=== PATIENT | male | born 1935 | race African-American/Black ===

== ENCOUNTER 2019-02-20 09:34 | Outpatient (CLI) | payer MEDICARE ==
[2019-02-20 10:06] LABS: Blood Urea Nitrogen 18 mg/dL (9-20)
--- NOTE | 2019-02-20 15:44 | Cat Scan Report ---
CT CHEST WITH CONTRAST INDICATION: Pulmonary nodule. COMPARISON: 10/18/2018 chest CTA. FINDINGS: Chest CT performed following intravenous administration of 100 cc of Omnipaque 300. Stable heart size and great vessels. No effusions or size significant adenopathy. Patent central airway. Stable thyroid, including approximately 2.5 cm heterogeneous substernal nodule/goiter as on axial series 2, image 28, amongst others. Chronic changes within the lungs again noted, including biapical scarring, tiny fine interstitial nodularity and slight bronchiectasis, some noted extending into the upper lobes as also in the right middle lobe and the lingula as on axial images 36 and 80, amongst others. Few small, subcentimeter calcified granulomas again noted as in the right upper lobe posteriorly, axial series 3, image 66, peripherally in the right middle lobe, axial image 175 and posteriorly at the extreme right lung base as on axial image 216, amongst others. Another 7-8 mm right middle lobe nodule anteriorly described previously also again seen as on axial image 158, series 3 with a tiny eccentric calcification. A 6 mm calcified lingular nodule is also stable, axial image 187. Nonspecific distal esophageal wall prominence/thickening, not excluded for gastroesophageal reflux and/or hiatal hernia, amongst others. Approximately 1.3 cm partly exophytic left renal cortical cyst and partially imaged bilateral renal pelves prominence/possible extrarenal pelves again noted. Multilevel spinal degenerative changes, greatest lower thoracic-imaged upper lumbar with disc degeneration/narrowing, vacuum disc phenomenon and spurring. CONCLUSION: 1. No acute significant chest process or significant interval change in this patient with pulmonary nodular densities again noted, predominantly calcified and likely chronic/old healed granulomatous disease. Direct comparison with more remote chest CT imaging would be very helpful to reassure stability and avoid further nodule workup, in the absence of which, depending on patient risk categorization, a followup in approximately 3-6 months may be obtained towards a 2-year surveillance. 2. Various other findings as distal esophageal thickening, stable substernal goiter, left renal cyst and spinal spondylosis, amongst others, as above. Thank you for the opportunity to participate in this patient's care.
== END 2019-02-20 09:35 | disposition home or self-care (01) ==
LOC: CT 09:34
PROVIDERS: ATTEND Specialist
DX: R91.1 Solitary pulmonary nodule (principal); N28.1 Cyst of kidney, acquired; E04.9 Nontoxic goiter, unspecified; M47.819 Spondylosis without myelopathy or radiculopathy, site unspecified; E78.00 Pure hypercholesterolemia, unspecified; I10 Essential (primary) hypertension
CPT/HCPCS: 36415; 71260; 82565; 84520; Q9967

== ENCOUNTER 2019-12-29 21:22 | Emergency (ER) | payer MEDICARE ==
[2019-12-29 22:58] LABS: Bilirubin,Urine Negative (Negative); Color,Urine Red (Yellow); Mucus,Urine 3+ /HPF; RBC,Urine > 182.0 /HPF (0.0-6.0)
[2019-12-29 22:59] LABS: Blood,Urine Large (Negative); Protein,Urine <15 mg/dL mg/dL (Negative); Urobilinogen,Urine < 2.0 mg/dL (<2.0)
--- NOTE | 2019-12-29 23:28 | Emergency Department Report ---
ED Male HPI - General Chief complaint: Urogenital-Male Stated complaint: BLOOD IN URINE Time Seen by Provider: 12/29/19 23:06 Source: patient, family, RN notes reviewed Mode of arrival: Ambulatory Limitations: Language Barrier - History of Present Illness Initial comments: Manager Roofing number: [id number] Local primary care doctor: Dr. Chau Mcdonough, but has not seen him in a few years Previously has seen 1 of our local urologist, Dr. Citlalli Ackerman The patient is an 84-year-old gentleman. He recently moved here from the [facility]. Has a past medical history includes hypertension, hyperlipidemia, BPH, prostate cancer. He was recently treated at [facility] late November for urinary retention. A Mahan catheter was placed, and he was started empirically on levofloxacin. He reports compliance with his antibiotics. His Mahan catheter was discontinued in [place] 2 to 3 days ago. Today, he presents with bloody urine. He has mild dysuria. He denies additional complaints. He denies hematemesis and bright red blood per rectum. He denies testicular pain. Bloody urination is constant for the past day. It does not radiate anywhere, and does not appear to have exacerbating or relieving factors. MD Complaint: dysuria, other -: days(s) Quality: other Improves with: other Worsens with: other - Related Data Home Medications Medication Instructions Recorded Confirmed Last Taken Alendronate Sodium [Fosamax] 70 mg PO QWEEK 02/17/15 10/19/18 02/16/15 Dutasteride [Avodart] 0.5 mg PO DAILY 02/17/15 10/19/18 02/16/15 Tamsulosin [Flomax] 0.4 mg PO QDAY 02/17/15 10/19/18 02/16/15 Telmisartan 80 mg PO DAILY 02/17/15 10/19/18 1 Day Ago ~02/16/15 1 hydroCHLOROthiazide [HCTZ] 25 mg PO QDAY 02/17/15 10/19/18 1 Day Ago ~02/16/15 Previous Rx's Medication Instructions Recorded Last Taken Type Nitrofurantoin Sutter/M-Cryst 100 mg PO Q12HR #14 capsule 12/29/19 Unknown Rx [Macrobid CAP] Allergies Allergy/AdvReac Type Severity Reaction Status Date / Time No Known Allergies Allergy Verified 12/29/19 21:28 ED Review of Systems ROS: Stated complaint: BLOOD IN URINE Other details as noted in HPI Constitutional: denies: fever Respiratory: denies: cough Cardiovascular: denies: chest pain Gastrointestinal: denies: abdominal pain, hematemesis, melena, hematochezia Genitourinary: dysuria, frequency, hematuria. denies: testicular pain Musculoskeletal: denies: back pain Skin: as per HPI Neurological: as per HPI Psychiatric: as per HPI Hematological/Lymphatic: denies: easy bleeding ED Past Medical Hx - Past Medical History Hx Hypertension: Yes Additional medical history: prostate cancer, hyperlipidemia - Social History Smoking Status: Never Smoker - Medications Home Medications: Home Medications Medication Instructions Recorded Confirmed Last Taken Type Alendronate Sodium [Fosamax] 70 mg PO QWEEK 02/17/15 10/19/18 02/16/15 History Dutasteride [Avodart] 0.5 mg PO DAILY 02/17/15 10/19/18 02/16/15 History Tamsulosin [Flomax] 0.4 mg PO QDAY 02/17/15 10/19/18 02/16/15 History Telmisartan 80 mg PO DAILY 02/17/15 10/19/18 1 Day Ago History ~02/16/15 1 hydroCHLOROthiazide [HCTZ] 25 mg PO QDAY 02/17/15 10/19/18 1 Day Ago History ~02/16/15 Nitrofurantoin Sutter/M-Cryst 100 mg PO Q12HR #14 capsule 12/29/19 Unknown Rx [Macrobid CAP] ED Physical Exam - General Limitations: Language Barrier General appearance: alert, in no apparent distress - Head Head exam: Present: atraumatic, normocephalic - Eye Eye exam: Present: normal appearance, EOMI. Absent: nystagmus - ENT ENT exam: Present: normal exam, normal orophraynx, mucous membranes moist - Neck Neck exam: Present: normal inspection, full ROM. Absent: tenderness, meningismus - Respiratory Respiratory exam: Present: normal lung sounds bilaterally. Absent: respiratory distress - Cardiovascular Cardiovascular Exam: Present: regular rate, normal rhythm, normal heart sounds. Absent: bradycardia, tachycardia, irregular rhythm, systolic murmur, diastolic murmur, rubs, gallop - GI/Abdominal GI/Abdominal exam: Present: soft. Absent: distended, tenderness, guarding, rebound, rigid, pulsatile mass - Rectal Rectal exam: Present: deferred - exam: Present: normal inspection, other (There is normal testicular lie. There is normal cremasteric reflex. There is no testicular tenderness. There is no testicular swelling). Absent: testicular tenderness External exam: Present: normal external exam (liquefaction supervisor F Humphries in the room during the exam), other (There is an easily retractable foreskin. No obvious blood is noted at the meatus.) - Extremities Exam Extremities exam: Present: normal inspection, full ROM, other (2+ pulses noted in the bilateral upper and lower extremities. There is no palpable cord. negative Homans sign. Muscular compartments are soft. The pelvis is stable.). Absent: calf tenderness - Back Exam Back exam: Present: normal inspection, full ROM. Absent: tenderness, CVA tenderness (R), CVA tenderness (L), paraspinal tenderness, vertebral tenderness - Neurological Exam Neurological exam: Present: alert, other (There is no facial droop. The tongue is midline. Extraocular movements are intact bilaterally. There is 5 out of 5 strength in bilateral upper and lower extremities. Sensation is intact to light touch bilateral upper and lower extremities. ). Absent: motor sensory deficit - Psychiatric Psychiatric exam: Present: anxious - Skin Skin exam: Present: warm, dry, intact, normal color. Absent: rash ED Course Vital Signs 12/29/19 21:30 Temperature 97.9 F Pulse Rate 78 Respiratory 18 Rate Blood Pressure 117/63 O2 Sat by Pulse 95 Oximetry - Reevaluation(s) Reevaluation #1: 12/29/19 23:57 Differential diagnosis, including not limited to: Hemorrhagic cystitis, vesicular hemorrhage, vesicular contraction/spasm, vesicular malignancy, prostatic malignancy Assessment and plan: 84-year-old gentleman with recent history of Mahan catheter placement, and subsequent removal, now with painful bloody urination. He is afebrile with reassuring vital signs. His physical examination is fairly unremarkable. Urinalysis is reviewed and appreciated. CBC, CMP, PT/INR ordered, Mahan catheter ordered for placement with irrigation, reassessed after irrigation has been completed. Anticipate need for discharge for close outpatient follow-up, we will likely initiate antibiotic therapy, explained the importance of needing to closely follow-up with outpatient primary care or urology for further outpatient evaluation to exclude cancer, tumor, malignancy. This was conveyed to the patient using a Algerian loss prevention associate, and the patient verbalized understanding. Reevaluation #2: 12/30/19 01:10 Patient resting comfortably, and in no acute distress. He is irrigated with approximately 200 cc of saline, which has cleared up his hematuria. His laboratory studies are unremarkable. Family at the bedside. They understand the need that he will need to closely follow-up with outpatient primary care and/or urology. ED Medical Decision Making - Lab Data Result diagrams: 12/30/19 00:09 12/30/19 00:09 Vital Signs 12/29/19 21:30 Temperature 97.9 F Pulse Rate 78 Respiratory 18 Rate Blood Pressure 117/63 O2 Sat by Pulse 95 Oximetry Lab Results 12/29/19 12/30/19 12/30/19 Range/Units 22:40 00:09 00:09 WBC 8.2 (4.5-11.0) K/mm3 RBC 4.05 (3.65-5.03) M/mm3 Hgb 12.4 (11.8-15.2) gm/dl Hct 36.6 (35.5-45.6) % MCV 90 (84-94) fl MCH 31 (28-32) pg MCHC 34 (32-34) % RDW 14.7 (13.2-15.2) % Plt Count 377 (140-440) K/mm3 PT 12.4 (12.2-14.9) Sec. INR 0.92 (0.87-1.13) APTT 34.3 (24.2-36.6) Sec. Sodium (137-145) mmol/L Potassium (3.6-5.0) mmol/L Chloride (98-107) mmol/L Carbon Dioxide (22-30) mmol/L Anion Gap mmol/L BUN (9-20) mg/dL Creatinine (0.8-1.5) mg/dL Estimated GFR ml/min BUN/Creatinine Ratio % Glucose (75-100) mg/dL Calcium (8.4-10.2) mg/dL Magnesium (1.7-2.3) mg/dL Total Bilirubin (0.1-1.2) mg/dL AST (5-40) units/L ALT (7-56) units/L Alkaline Phosphatase (35-129) units/L Total Creatine Kinase (55-170) units/L Total Protein (6.3-8.2) g/dL Albumin (3.9-5) g/dL Albumin/Globulin Ratio % Urine Color Red (Yellow) Urine Turbidity Turbid (Clear) Urine pH 6.0 (5.0-7.0) Ur Specific Hughson 1.025 (1.003-1.030) Urine Protein <15 mg/dl (Negative) mg/dL Urine Glucose (UA) Negative (Negative) mg/dL Urine Ketones Negative (Negative) mg/dL Urine Blood Large A (Negative) Urine Nitrite Negative (Negative) Ur Reducing Substances Not Reportable Urine Bilirubin Negative (Negative) Urine Ictotest Not Reportable Urine Urobilinogen < 2.0 (<2.0) mg/dL Ur Leukocyte Esterase Moderate (Negative) Urine WBC (Auto) 53.0 H (0.0-6.0) /HPF Urine RBC (Auto) > 182.0 (0.0-6.0) /HPF U Epithel Cells (Auto) 21.0 H (0-13.0) /HPF Urine Mucus 3+ /HPF 12/30/19 Range/Units 00:09 WBC (4.5-11.0) K/mm3 RBC (3.65-5.03) M/mm3 Hgb (11.8-15.2) gm/dl Hct (35.5-45.6) % MCV (84-94) fl MCH (28-32) pg MCHC (32-34) % RDW (13.2-15.2) % Plt Count (140-440) K/mm3 PT (12.2-14.9) Sec. INR (0.87-1.13) APTT (24.2-36.6) Sec. Sodium 141 (137-145) mmol/L Potassium 3.9 (3.6-5.0) mmol/L Chloride 102.2 (98-107) mmol/L Carbon Dioxide 26 (22-30) mmol/L Anion Gap 17 mmol/L BUN 16 (9-20) mg/dL Creatinine 0.8 (0.8-1.5) mg/dL Estimated GFR > 60 ml/min BUN/Creatinine Ratio 20 % Glucose 109 H (75-100) mg/dL Calcium 9.0 (8.4-10.2) mg/dL Magnesium 2.10 (1.7-2.3) mg/dL Total Bilirubin 0.20 (0.1-1.2) mg/dL AST 22 (5-40) units/L ALT 15 (7-56) units/L Alkaline Phosphatase 57 (35-129) units/L Total Creatine Kinase 160 (55-170) units/L Total Protein 6.7 (6.3-8.2) g/dL Albumin 4.0 (3.9-5) g/dL Albumin/Globulin Ratio 1.5 % Urine Color (Yellow) Urine Turbidity (Clear) Urine pH (5.0-7.0) Ur Specific Hughson (1.003-1.030) Urine Protein (Negative) mg/dL Urine Glucose (UA) (Negative) mg/dL Urine Ketones (Negative) mg/dL Urine Blood (Negative) Urine Nitrite (Negative) Ur Reducing Substances Urine Bilirubin (Negative) Urine Ictotest Urine Urobilinogen (<2.0) mg/dL Ur Leukocyte Esterase (Negative) Urine WBC (Auto) (0.0-6.0) /HPF Urine RBC (Auto) (0.0-6.0) /HPF U Epithel Cells (Auto) (0-13.0) /HPF Urine Mucus /HPF Critical care attestation.: If time is entered above; I have spent that time in minutes in the direct care of this critically ill patient, excluding procedure time. ED Disposition Clinical Impression: Hematuria Qualifiers: Hematuria type: unspecified type Qualified Code(s): R31.9 - Hematuria, unspecified Disposition: DC TO HOME OR SELFCARE Is pt being admited?: No Does the pt Need Aspirin: No Condition: Stable Additional Instructions: Continue current outpatient medications. Avoid consumption of Motrin, ibuprofen, Naprosyn, Aleve. Take the antibiotics as directed. Avoid consumption of alcohol. Cultures were sent today, and results will be available in the next 3 to 5 days. Please have your primary care doctor or urologist c ontact the medical records office to obtain culture results. Recommend follow- up with outpatient primary care or urologist within the next week for further evaluation of bloody urination. It is very important to follow-up to exclude cancer, tumor, malignancy. Please return to the emergency room right away with new, worsened or different symptoms, or symptoms not present on the initial emergency room evaluation. Ti?p t?c dng gilberto?c angulo?i tr hi?n t?i. Trnh nito th? Motrin, ibuprofen, Napro syn, Aleve. U?ng gilberto?c khng sinh deanne ch? d?n. Trnh nito th? r??u. Cc n?n v?n salazar ?c g?i ngy hm nay, v k?t qu? s? c andrzej 3 ??n 5 ngy t?i. Vui lng nh? bc s? ch?m sc chnh ho?c bc s? ti?t ni?u mary h? v?i v?n phng h? s? y t? ?? c k?t qu? nui c?y. ?? ngh? deanne di v?i ch?m sc chnh angulo?i tr ho?c bc s? ti?t ni?u andrzej tu?n t?i ?? ?nh gi thm v? vi?c ?i ti?u ra mu. ?i?u r?t q uan tr?ng l deanne di ?? lo?i tr? madan th?, kh?i u, c tnh. Vui lng mikayla l?i phng c?p c?u ngay l?p t?c v?i cc tri?u ch?ng m?i, x?u ?i ho?c khc bi?t, ho?c cc tri?u ch?ng khng c andrzej ?nh gi phng c?p c?u ban ??u. Prescriptions: Nitrofurantoin Sutter/M-Cryst [Macrobid CAP] 100 mg PO Q12HR #14 capsule Referrals: ROB ACKERMAN MD [Staff Physician] - 3-5 Days CHAU MCDONOUGH MD [Staff Physician] - 3-5 Days
[2019-12-29] MEDS ORDERED: SODIUM CHLORIDE 0.9% IRR 500 ML BOTTLE IR ONE (23:45)
[2019-12-30 00:50] LABS: Hematocrit 36.6 % (35.5-45.6); Hemoglobin 12.4 gm/dl (11.8-15.2); Mean Corpuscular HGB Conc 34 % (32-34); Mean Corpuscular Volume 90 fl (84-94); Platelet Count 377 K/mm3 (140-440); Red Blood Count 4.05 M/mm3 (3.65-5.03); Red Cell Distribution Width 14.7 % (13.2-15.2)
[2019-12-30 01:01] LABS: INR 0.92 (0.87-1.13)
[2019-12-30 01:02] LABS: Partial Thromboplastin Time 34.3 Sec. (24.2-36.6)
[2019-12-30 01:05] LABS: Alanine Aminotransferase 15 units/L (7-56); BUN/Creatinine Ratio 20; Blood Urea Nitrogen 16 mg/dL (9-20); Hemolysis Index 2
[2019-12-30 01:19] VITALS: BP 134/77
== END 2019-12-30 01:30 | disposition home or self-care (01) ==
LOC: ED 21:22
DX: R31.9 Hematuria, unspecified (principal); I10 Essential (primary) hypertension; Z85.46 Personal history of malignant neoplasm of prostate; Z79.899 Other long term (current) drug therapy
CPT/HCPCS: 36415; 80053; 81001; 82550; 83735; 85027; 85610; 85730; 87086

== ENCOUNTER 2020-10-03 17:12 | Inpatient (IN) | payer MEDICARE ==
[2020-10-03] MEDS ORDERED: ACETAMINOPHEN 500 MG TAB PO ONE (17:56)
[2020-10-03] MEDS ORDERED: hydrALAZINE 20 MG/1 ML INJ IV ONE (17:57)
--- NOTE | 2020-10-03 18:02 | Emergency Department Report ---
ED Headache HPI - General Chief Complaint: Headache Stated Complaint: HBP Time Seen by Provider: 10/03/20 17:50 Source: patient Exam Limitations: language barrier (Thai speaking) - History of Present Illness Initial Comments: cc: "His blood pressure is high." HPI: This is an 84 yo male with hx of HTN, hyperlipidemia, prostate carncer in remission who presents with headache and elevated blood pressure for the past 5 days. Hx obtained from grandson. Patient has frontal headache. Home blood pressure readings were high. Bilingual granddaughter at the bedside was able to provide Thai interpretation. Only symptoms headache and elevated blood pressure. Timing/Duration: other (5 days) Quality: moderate Head Injury Location: frontal Recent Head Trauma: occasional headaches Associated Symptoms: denies symptoms Allergies/Adverse Reactions: Allergies No Known Allergies Allergy (Verified 12/29/19 21:28) Home Medications: Ambulatory Orders Alendronate Sodium [Fosamax] 70 mg PO QWEEK 02/17/15 Dutasteride [Avodart] 0.5 mg PO DAILY 02/17/15 Tamsulosin [Flomax] 0.4 mg PO QDAY 02/17/15 Telmisartan 80 mg PO DAILY 02/17/15 Sodium Chloride 1 gm PO TID #90 tablet 08/10/20 ED Review of Systems ROS: Stated complaint: HBP Other details as noted in HPI Comment: All other systems reviewed and negative Constitutional: denies: fever, malaise Respiratory: denies: cough Gastrointestinal: denies: abdominal pain, nausea, vomiting Neurological: headache. denies: numbness, paresthesias ED Past Medical Hx - Past Medical History Previous Medical History?: Yes Hx Hypertension: Yes Hx Seizures: No Hx Dementia: No Hx HIV: No Additional medical history: prostate cancer, hyperlipidemia - Surgical History Past Surgical History?: Yes Additional Surgical History: prostate biopsy - Social History Smoking Status: Unknown if ever smoked - Medications Home Medications: Home Medications Medication Instructions Recorded Confirmed Last Taken Type Alendronate Sodium [Fosamax] 70 mg PO QWEEK 02/17/15 10/19/18 02/16/15 History Dutasteride [Avodart] 0.5 mg PO DAILY 02/17/15 10/19/18 02/16/15 History Tamsulosin [Flomax] 0.4 mg PO QDAY 02/17/15 10/19/18 02/16/15 History Telmisartan 80 mg PO DAILY 02/17/15 10/19/18 1 Day Ago History ~02/16/15 1 Sodium Chloride 1 gm PO TID #90 tablet 08/10/20 Unknown Rx ED Physical Exam - General Limitations: No Limitations General appearance: alert, in no apparent distress - Head Head exam: Present: atraumatic, normocephalic - Eye Eye exam: Present: normal appearance - ENT ENT exam: Present: mucous membranes moist - Neck Neck exam: Present: normal inspection - Respiratory Respiratory exam: Present: normal lung sounds bilaterally. Absent: respiratory distress - Cardiovascular Cardiovascular Exam: Present: regular rate, normal rhythm, normal heart sounds. Absent: systolic murmur, diastolic murmur, rubs, gallop - GI/Abdominal GI/Abdominal exam: Present: soft, normal bowel sounds. Absent: distended, tenderness, guarding, rebound - Rectal Rectal exam: Present: deferred - Extremities Exam Extremities exam: Present: normal inspection - Neurological Exam Neurological exam: Present: alert, oriented X3 - Psychiatric Psychiatric exam: Present: normal mood, flat affect - Skin Skin exam: Present: warm, dry, intact, normal color. Absent: rash ED Course Vital Signs 10/03/20 10/03/20 10/03/20 17:46 17:51 18:38 Temperature 97.9 F 97.9 F Pulse Rate 63 63 Respiratory 16 18 Rate Blood Pressure 192/91 175/91 Blood Pressure 192/91 [Left] O2 Sat by Pulse 96 96 Oximetry 10/03/20 10/03/20 10/03/20 19:08 19:53 20:10 Temperature Pulse Rate 67 74 72 Respiratory 18 16 16 Rate Blood Pressure Blood Pressure 162/73 166/72 156/75 [Left] O2 Sat by Pulse 96 96 Oximetry ED Medical Decision Making - Lab Data Result diagrams: 10/03/20 18:20 10/03/20 18:20 - Radiology Data Radiology results: report reviewed CT BRAIN: 10/03/2020 INDICATION / CLINICAL INFORMATION: Headache. COMPARISON: 10/18/2018 FINDINGS: BRAIN/INTRACRANIAL STRUCTURES: Unenhanced CT images of the brain demonstrate no evidence of acute intracranial abnormality. Ventricles and sulci are slightly prominent in size, consistent with normal age-related atrophic change. There is no evidence of ischemic injury, hemorrhage, or mass. There are no abn ormal extra-axial fluid collections. Atherosclerotic vascular calcifications are present in the distal internal carotid arteries and vertebral arteries. EXTRACRANIAL STRUCTURES: Unremarkable. IMPRESSION: No acute abnormality. Chronic and age-related changes. No change when compared to 10/18/2018 - Medical Decision Making 1. headache likely caused by hyponatremia. Na 123 today. According to EMR, patient had been prescribed sodium tablets. Will admit for further treatment. 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 3 times daily 2. hypertensive urgency: unclear cause, normal kidney function, BP managed with IV hydralazine in the ED Critical care attestation.: If time is entered above; I have spent that time in minutes in the direct care of this critically ill patient, excluding procedure time. ED Disposition Clinical Impression: Hyponatremia, Headache, Hypertensive urgency Disposition: OP ADMIT IP TO THIS HOSP Is pt being admited?: Yes Does the pt Need Aspirin: No Condition: Stable
[2020-10-03 18:34] LABS: Basophils % (Auto) 0.2 % (0.0-1.8); Eosinophils % (Auto) 0.3 % (0.0-4.3); Hematocrit 42.6 % (35.5-45.6); Hemoglobin 14.5 gm/dl (11.8-15.2); Lymphocytes % (Auto) 13.4 % (13.4-35.0); Mean Corpuscular HGB Conc 34 % (32-34); Mean Corpuscular Volume 93 fl (84-94); Monocytes # (Auto) 0.9 K/mm3 (0.0-0.8); Monocytes % (Auto) 12.1 % (0.0-7.3); Platelet Count 297 K/mm3 (140-440); Red Cell Distribution Width 13.7 % (13.2-15.2)
--- NOTE | 2020-10-03 18:35 | Cat Scan Report ---
CT BRAIN: 10/03/2020 INDICATION / CLINICAL INFORMATION: Headache. COMPARISON: 10/18/2018 FINDINGS: BRAIN/INTRACRANIAL STRUCTURES: Unenhanced CT images of the brain demonstrate no evidence of acute int racranial abnormality. Ventricles and sulci are slightly prominent in size, consistent with normal age-related atrophic chappell ge. There is no evidence of ischemic injury, hemorrhage, or mass. There are no abnormal extra-axial fluid collections. Atherosclerotic vascular calcifications are present in the distal internal carotid arteries and verte bral arteries. EXTRACRANIAL STRUCTURES: Unremarkable. IMPRESSION: No acute abnormality. Chronic and age-related changes. No change when compared to 10/18/[address] scans at this location are performed using dose reduction to ALARA by means of automated expos ure control. Signer Name: Hank Cheema MD Signed: 10/03/2020 6:31 PM Workstation Name: [id number]
[2020-10-03 19:38] LABS: BUN/Creatinine Ratio 20; Blood Urea Nitrogen 14 mg/dL (9-20); Calcium 8.3 mg/dL (8.4-10.2)
[2020-10-03] MEDS ORDERED: MORPHINE 4 MG/1 ML INJ IV ONE (20:13)
[2020-10-03] MEDS ORDERED: HYDROcodone/ACETAMINOPHEN 5-325 MG TAB PO ONE (20:14)
[2020-10-03] MEDS ORDERED: ONDANSETRON 4 MG/2 ML INJ IV ONE (20:14)
[2020-10-03] MEDS ORDERED: SODIUM CHLORIDE 1 GM TAB PO ONE (21:00)
[2020-10-03] MEDS ORDERED: MAGNESIUM HYDROXIDE (MOM) ORAL LIQD UDC PO PRN (21:44)
[2020-10-03] MEDS ORDERED: MORPHINE 2 MG/1 ML INJ IV PRN (21:44)
[2020-10-03] MEDS ORDERED: ONDANSETRON 4 MG/2 ML INJ IV PRN (21:44)
--- NOTE | 2020-10-03 21:56 | History and Physical Report ---
History of Present Illness Date of examination: 10/03/20 Date of admission: 10/03/2020 Chief complaint: Headache History of present illness: 84-year-old Norwegian male with known history of hypertension, hyperlipidemia, history of prostate cancer and a remote history of SIADH diagnosed few days ago presenting to the emergency room today with complaint of headache and elevated blood pressure. Headache is said to be frontal. Denies any blurry vision, no nausea vomiting, no neck stiffness, no fever or chills, no chest pain or shortness of breath, denies any sick contacts and no recent travel, denies any contact with anyone with COVID-19. Headache is said to have been ongoing for about 5 days. Most of the history was given by the grandson. Blood pressure upon arrival was elevated with systolic in the 190s and diastolic in the 90s. Work-up in the emergency room including CT scan of the head was unremarkable. However labs indicates a hyponatremia. Patient is being admitted for hyponatremia, headache and hypertensive urgency. Past History Past Medical History: hypertension, hyperlipidemia, other (Prostate ca.) Past Surgical History: Other (Prostate biopsy) Social history: no significant social history Family history: no significant family history Medications and Allergies Allergies Allergy/AdvReac Type Severity Reaction Status Date / Time No Known Allergies Allergy Verified 12/29/19 21:28 Home Medications Medication Instructions Recorded Confirmed Last Taken Type Alendronate Sodium [Fosamax] 70 mg PO QWEEK 02/17/15 10/19/18 02/16/15 History Dutasteride [Avodart] 0.5 mg PO DAILY 02/17/15 10/19/18 02/16/15 History Tamsulosin [Flomax] 0.4 mg PO QDAY 02/17/15 10/19/18 02/16/15 History Telmisartan 80 mg PO DAILY 02/17/15 10/19/18 1 Day Ago History ~02/16/15 1 Sodium Chloride 1 gm PO TID #90 tablet 08/10/20 Unknown Rx Active Meds: Active Medications Acetaminophen (Tylenol) 650 mg PO Q4H PRN PRN Reason: Pain MILD(1-3)/Fever >100.5/CHAVEZ Magnesium Hydroxide (Milk Of Magnesia) 30 ml PO Q4H PRN PRN Reason: Constipation Morphine Sulfate (Morphine) 2 mg IV Q4H PRN PRN Reason: Pain, Moderate (4-6) Ondansetron HCl (Zofran) 4 mg IV Q8H PRN PRN Reason: Nausea And Vomiting Sodium Chloride (Sodium Chloride Flush Syringe 10 Ml) 10 ml IV BID ZAKIA Sodium Chloride (Sodium Chloride Flush Syringe 10 Ml) 10 ml IV PRN PRN PRN Reason: LINE FLUSH Review of Systems Constitutional: no fever, no chills Ears, nose, mouth and throat: no nasal congestion, no sore throat Cardiovascular: no chest pain, no palpitations Respiratory: no cough, no shortness of breath Gastrointestinal: no abdominal pain, no nausea, no vomiting, no diarrhea Genitourinary Male: no dysuria, no hematuria, no nocturia Musculoskeletal: no neck pain, no low back pain Integumentary: no rash, no pruritis Neurological: headaches, no change in speech, no confusion Psychiatric: no anxiety, no depression Exam - Constitutional Vitals: Temp Pulse Resp BP Pulse Ox 97.9 F 72 16 156/75 96 10/03/20 17:51 10/03/20 20:10 10/03/20 20:10 10/03/20 20:10 10/03/20 20:10 General appearance: Present: no acute distress, well-nourished - EENT Eyes: Present: PERRL, EOM intact. Absent: scleral icterus ENT: hearing intact, clear oral mucosa, dentition normal - Neck Neck: Present: supple, normal ROM - Respiratory Respiratory effort: normal Respiratory: bilateral: CTA - Cardiovascular Rhythm: regular Heart Sounds: Present: S1 & S2. Absent: gallop, systolic murmur, diastolic murmur, rub - Extremities Extremities: no ischemia, pulses intact, pulses symmetrical, No edema, Full ROM Peripheral Pulses: within normal limits - Abdominal General gastrointestinal: Present: soft, non-tender, non-distended, normal bowel sounds. Absent: mass - Integumentary Integumentary: Present: clear, warm, dry. Absent: rash - Musculoskeletal Musculoskeletal: strength equal bilaterally - Psychiatric Psychiatric: appropriate mood/affect, intact judgment & insight, memory intact, cooperative - Neurologic Neurologic: CNII-XII intact, no focal deficits, moves all extremities Results - Labs CBC & Chem 7: 10/04/20 04:47 10/04/20 04:47 Labs: Abnormal lab results 10/03/20 10/03/20 Range/Units 18:20 18:20 [place] % (Auto) 12.1 H (0.0-7.3) % Lymph # (Auto) 1.0 L (1.2-5.4) K/mm3 [place] # (Auto) 0.9 H (0.0-0.8) K/mm3 Seg Neutrophils % 74.0 H (40.0-70.0) % Sodium 123 L (137-145) mmol/L Chloride 86.6 L (98-107) mmol/L Creatinine 0.7 L (0.8-1.3) mg/dL Glucose 111 H (75-100) mg/dL Calcium 8.3 L (8.4-10.2) mg/dL Assessment and Plan - Patient Problems (1) Headache Current Visit: Yes Status: Acute Plan to address problem: Possibly secondary to the elevated blood pressure. Patient given analgesic medication and will also monitor blood pressure closely. (2) Hyponatremia Current Visit: Yes Status: Acute Plan to address problem: Will monitor chemistry closely. Patient recently diagnosed with SIADH. We will appreciate nephrology input. (3) Hypertensive urgency Current Visit: Yes Status: Acute Plan to address problem: Patient was given IV hydralazine in the ER. We will resume routine home medications and monitor vital signs closely. (4) DVT prophylaxis Current Visit: No Status: Acute Plan to address problem: Patient on anticoagulation with subcutaneous Lovenox. (5) Full code status Current Visit: Yes Status: Acute
[2020-10-04 05:17] LABS: Basophils % (Auto) 0.4 % (0.0-1.8); Eosinophils % (Auto) 0.4 % (0.0-4.3); Hematocrit 41.3 % (35.5-45.6); Hemoglobin 13.9 gm/dl (11.8-15.2); Lymphocytes % (Auto) 11.8 % (13.4-35.0); Mean Corpuscular HGB Conc 34 % (32-34); Mean Corpuscular Volume 92 fl (84-94); Monocytes # (Auto) 0.9 K/mm3 (0.0-0.8); Platelet Count 314 K/mm3 (140-440); Red Blood Count 4.51 M/mm3 (3.65-5.03); Red Cell Distribution Width 13.9 % (13.2-15.2)
[2020-10-04 05:35] LABS: Blood Urea Nitrogen 15 mg/dL (9-20); Calcium 7.9 mg/dL (8.4-10.2); Hemolysis Index 5
[2020-10-04 05:36] LABS: INR 0.92 (0.87-1.13)
[2020-10-04 05:45] LABS: BUN/Creatinine Ratio 21
[2020-10-04] MEDS ORDERED: ALENDRONATE SODIUM 70 MG TAB PO SCH (06:30)
--- NOTE | 2020-10-04 08:30 | Consultation ---
History of Present Illness - Reason for Consult Consult date: 10/04/20 hyponatremia - History of Present Illness The patient is an 84 YO [place]oc[place] male with known history of Hypertension, Hyperlipidemia, Prostate cancer and SIADH who presented to [facility] ED with complaint of headache for the past 5 days. Headache is said to be frontal. Denies any blurry vision, nausea, vomiting, neck stiffness, fever, chills, chest pain, shortness of breath, sick contacts, recent travel or contact with anyone with COVID-19. Patient only speaks Moroccan and most of the history was given by his grandson. Blood pressure upon arrival was 191/91. Work-up in the ED including CT scan of the head was unremarkable. However Sodium level was 123. Patient was admitted for hyponatremia, headache and hypertensive urgency. Nephrology was consulted for further evaluation. Past History Past Medical History: hypertension, hyperlipidemia, other (Prostate Ca, SIADH) Past Surgical History: Other (Prostate biopsy) Social history: no significant social history Family history: no significant family history Medications and Allergies Allergies Allergy/AdvReac Type Severity Reaction Status Date / Time No Known Allergies Allergy Verified 12/29/19 21:28 Home Medications Medication Instructions Recorded Confirmed Last Taken Type Alendronate Sodium [Fosamax] 70 mg PO QWEEK 02/17/15 10/19/18 02/16/15 History Dutasteride [Avodart] 0.5 mg PO DAILY 02/17/15 10/19/18 02/16/15 History Tamsulosin [Flomax] 0.4 mg PO QDAY 02/17/15 10/19/18 02/16/15 History Telmisartan 80 mg PO DAILY 02/17/15 10/19/18 1 Day Ago History ~02/16/15 1 Sodium Chloride 1 gm PO TID #90 tablet 08/10/20 Unknown Rx Active Meds: Active Medications Acetaminophen (Tylenol) 650 mg PO Q4H PRN PRN Reason: Pain MILD(1-3)/Fever >100.5/CHAVEZ Alendronate Sodium (Fosamax) 70 mg PO We ZAKIA Enoxaparin Sodium (Enoxaparin) 40 mg SUB-Q QDAY@2200 ZAKIA; Protocol Losartan Potassium (Cozaar) 50 mg PO QDAY ZAKIA Magnesium Hydroxide (Milk Of Magnesia) 30 ml PO Q4H PRN PRN Reason: Constipation Miscellaneous Medication (Dutasteride [Avodart]) 0.5 mg PO DAILY [facility] Morphine Sulfate (Morphine) 2 mg IV Q4H PRN PRN Reason: Pain, Moderate (4-6) Ondansetron HCl (Zofran) 4 mg IV Q8H PRN PRN Reason: Nausea And Vomiting Sodium Chloride (Sodium Chloride Flush Syringe 10 Ml) 10 ml IV BID [facility] Last Admin: 10/03/20 23:54 Dose: 10 ml Documented by: Sodium Chloride (Sodium Chloride Flush Syringe 10 Ml) 10 ml IV PRN PRN PRN Reason: LINE FLUSH Sodium Chloride (Sodium Chloride) 1 gm PO TID [facility] Tamsulosin HCl (Flomax) 0.4 mg PO QDAY [facility] Review of Systems ROS unobtainable: due to mental status (unable to obtain due to language barrier) Exam - Vital Signs Vital signs: Vital Signs Temp Pulse Resp BP Pulse Ox 97.9 F 63 16 192/91 96 10/03/20 17:46 10/03/20 17:46 10/03/20 17:46 10/03/20 17:46 10/03/20 17:46 Results - Lab Results 10/04/20 04:47 10/04/20 04:47 Most recent lab results Calcium 7.9 mg/dL (8.4-10.2) L 10/04/20 04:47 Phosphorus 2.80 mg/dL (2.5-4.5) 10/04/20 04:47 Magnesium 2.00 mg/dL (1.7-2.3) 10/04/20 04:47 Assessment and Plan 1. Hyponatremia: Hyponatremia 2/2 SIADH. Sodium level is improving appropriately with Salt tablets. Continue NaCl 1 gm TID. Monitor Sodium level. 2. FEN: Monitor lytes and volume status. 3. Uncontrolled HTN: Adjust BP meds as needed. Monitor BP. 4. Headache: Likely secondary to high blood pressure. Monitor. Subjective: Patient was seen and examined at the bedside. Examination: General appearance: well-developed, appears stated age, appears emaciated, no distress HEENT: ATNC, [place] Neck: trachea midline Respiratory: ctab Heart: regular, S1S2, no murmur Gastrointestinal: soft, normoactive bowel sounds, not tender Integumentary: no rash, warm and dry Neurologic: alert, moving extremities Ext: no edema
[2020-10-04] MEDS ORDERED: TELMISARTAN 80 MG PO SCH (10:00)
[2020-10-04] MEDS ORDERED: DUTASTERIDE 0.5 MG PO SCH (10:00)
[2020-10-04] MEDS: TAMSULOSIN 0.4 MG CAP PO SCH (10:11)
[2020-10-04] MEDS: ACETAMINOPHEN 325 MG TAB PO PRN ×2 (10:11→21:28)
[2020-10-04] MEDS: LOSARTAN 50 MG TAB PO SCH (10:11)
[2020-10-04] MEDS: SODIUM CHLORIDE 1 GM TAB PO SCH ×2 (10:13→14:37)
[2020-10-04] MEDS ORDERED: hydrALAZINE 25 MG TAB PO SCH (14:00)
[2020-10-04] MEDS ORDERED: SODIUM CHLORIDE 1 GM TAB PO ONE ×2 (18:19)
--- NOTE | 2020-10-04 20:02 | Progress Note ---
Assessment and Plan Assessment and plan: --Acute metabolic encephalopathy; present on admission Multifactorial, advanced age, electrolyte abnormalities Hypertensive urgency, closely monitor Treat the underlying cause --Severe hyponatremia; Gentle hydration with normal saline, nephrology following Started on sodium chloride tablets, closely monitor --Hypertensive urgency; present on admission Blood pressure significantly improved, moderate hypertension Continue current antihypertensives and as needed medications --Headache; present on admission CT head without contrast, no acute abnormality Only age-related changes --DVT prophylaxis; heparin --Full CODE STATUS; We will closely monitor the patient and adjust management as needed Plan of care reviewed with the patient's nurse We will try to reach the family to get more medical history And also to update patient's condition and treatment plan History Interval history: I have seen and examined the patient at the bedside this morning Patient's chart and medications reviewed Patient is admitted with hypertensive urgency, blood pressures moderate control As well as severe hyponatremia Patient minimally communicative Vital signs noted Hospitalist Physical - Constitutional Vitals: Temp Pulse Resp BP Pulse Ox 98.6 F 79 18 93/46 94 10/04/20 11:51 10/04/20 18:37 10/04/20 11:51 10/04/20 18:37 10/04/20 18:37 General appearance: Present: no acute distress, well-nourished - EENT Eyes: Present: PERRL, EOM intact - Neck Neck: Present: supple, normal ROM - Respiratory Respiratory effort: normal Respiratory: bilateral: diminished, negative: rales, rhonchi, wheezing - Cardiovascular Rhythm: regular Heart Sounds: Present: S1 & S2 - Extremities Extremities: no ischemia, No edema - Abdominal General gastrointestinal: soft, non-tender, non-distended, normal bowel sounds - Integumentary Integumentary: Present: clear, warm - Psychiatric Psychiatric: other (Noncommunicative) - Neurologic Neurologic: moves all extremities, other (Dementia noncommunicative) Results - Labs CBC & Chem 7: 10/04/20 04:47 10/04/20 15:34 Labs: Laboratory Last Values WBC 8.1 K/mm3 (4.5-11.0) 10/04/20 04:47 RBC 4.51 M/mm3 (3.65-5.03) 10/04/20 04:47 Hgb 13.9 gm/dl (11.8-15.2) 10/04/20 04:47 Hct 41.3 % (35.5-45.6) 10/04/20 04:47 MCV 92 fl (84-94) 10/04/20 04:47 MCH 31 pg (28-32) 10/04/20 04:47 MCHC 34 % (32-34) 10/04/20 04:47 RDW 13.9 % (13.2-15.2) 10/04/20 04:47 Plt Count 314 K/mm3 (140-440) 10/04/20 04:47 Lymph % (Auto) 11.8 % (13.4-35.0) L 10/04/20 04:47 [place] % (Auto) 11.0 % (0.0-7.3) H 10/04/20 04:47 Eos % (Auto) 0.4 % (0.0-4.3) 10/04/20 04:47 Baso % (Auto) 0.4 % (0.0-1.8) 10/04/20 04:47 Lymph # (Auto) 1.0 K/mm3 (1.2-5.4) L 10/04/20 04:47 [place] # (Auto) 0.9 K/mm3 (0.0-0.8) H 10/04/20 04:47 Eos # (Auto) 0.0 K/mm3 (0.0-0.4) 10/04/20 04:47 Baso # (Auto) 0.0 K/mm3 (0.0-0.1) 10/04/20 04:47 Seg Neutrophils % 76.4 % (40.0-70.0) H 10/04/20 04:47 Seg Neutrophils # 6.2 K/mm3 (1.8-7.7) 10/04/20 04:47 PT 12.5 Sec. (12.2-14.9) 10/04/20 04:47 INR 0.92 (0.87-1.13) 10/04/20 04:47 Sodium 124 mmol/L (137-145) L 10/04/20 15:34 Potassium 3.6 mmol/L (3.6-5.0) 10/04/20 04:47 Chloride 90.7 mmol/L (98-107) L 10/04/20 04:47 Carbon Dioxide 23 mmol/L (22-30) 10/04/20 04:47 Anion Gap 16 mmol/L 10/04/20 04:47 BUN 15 mg/dL (9-20) 10/04/20 04:47 Creatinine 0.7 mg/dL (0.8-1.3) L 10/04/20 04:47 Estimated GFR > 60 ml/min 10/04/20 04:47 BUN/Creatinine Ratio 21 % 10/04/20 04:47 Glucose 103 mg/dL (75-100) H 10/04/20 04:47 Calcium 7.9 mg/dL (8.4-10.2) L 10/04/20 04:47 Phosphorus 2.80 mg/dL (2.5-4.5) 10/04/20 04:47 Magnesium 2.00 mg/dL (1.7-2.3) 10/04/20 04:47 Mahan/IV: Voiding Method Urinal IV Catheter Type [Left INT / Saline Lock Antecubital] Active Medications - Current Medications Current Medications: Generic Name Dose Route Start Last Admin Trade Name Freq PRN Reason Stop Dose Admin Acetaminophen 650 mg 10/03/20 21:44 10/04/20 10:11 Tylenol PO 650 mg Q4H PRN Administration Pain MILD(1-3)/Fever >100.5/CHAVEZ Alendronate Sodium 70 mg 10/05/20 07:00 Fosamax PO [facility] Enoxaparin Sodium 40 mg 10/04/20 22:00 Enoxaparin SUB-Q QDAY@2200 [facility] Protocol Hydralazine HCl 50 mg 10/04/20 20:00 Apresoline PO TID [facility] Losartan Potassium 50 mg 10/04/20 10:00 10/04/20 10:11 Cozaar PO 50 mg QDAY [facility] Administration Magnesium Hydroxide 30 ml 10/03/20 21:44 Milk Of Magnesia PO Q4H PRN Constipation Miscellaneous Medication 0.5 mg 10/04/20 10:00 Dutasteride [Avodart] PO DAILY [facility] Morphine Sulfate 2 mg 10/03/20 21:44 10/04/20 16:32 Morphine IV 2 mg Q4H PRN Administration Pain, Moderate (4-6) Ondansetron HCl 4 mg 10/03/20 21:44 Zofran IV Q8H PRN Nausea And Vomiting Sodium Chloride 10 ml 10/03/20 22:00 10/04/20 10:12 Sodium Chloride Flush Syringe 10 Ml IV 10 ml BID ZAKIA Administration Sodium Chloride 10 ml 10/03/20 21:44 Sodium Chloride Flush Syringe 10 Ml IV PRN PRN LINE FLUSH Tamsulosin HCl 0.4 mg 10/04/20 10:00 10/04/20 10:11 Flomax PO 0.4 mg QDAY ZAKIA Administration Nutrition/Malnutrition Assess - Dietary Evaluation Nutrition/Malnutrition Findings: Nutrition Notes Start: 10/04/20 12:10 Freq: Status: Active Protocol: Document 10/04/20 12:10 LM (Rec: 10/04/20 12:39 LM [id number]) Nutrition Notes Need for Assessment generated from: Low BMI Initial or Follow up Assessment Current Diagnosis Hypertension,Hyperlipidemia Other Pertinent Diagnosis hx prostate cancer Current Diet cardiac Labs/Tests Na 126 Pertinent Medications Reviewed Height 5 ft 5 in Weight 48 kg [place] Body Weight (kg) 61.81 BMI 17.6 Weight Status Underweight Subjective/Other Information Screen for low BMI. Pt speaks Croatian. Unable to use corrugator phone but pt provided [employer] phone number to get information. Granddater stated that pt had a poor appetite for one day when his BP increased and had no wt loss. Burn Absent Trauma Absent Minimum of two criteria No physical signs of malnutrition #1 Nutrition Diagnosis Inadequate oral intake Etiology poor appetite secondary to elevated BP As Evidenced by Signs and Symptoms pt with decreased intakes Is patient on ventilator? No Is Patient Ambulatory and/or Out of Bed Yes REE-([place]-ambulatory/OOB) [ 6684.944 [id number]] Kcal/Kg value to use for calculation 38 Approximate Energy Requirements Using 1824 kcal/Kg Calculation Used for Recommendations Kcal/kg Additional Notes Protein: 48-58g (1-1.2g/kg) Fluid: 1ml/kcal Nutrition Intervention Change Diet Order: Continue Add Supplement/Snack (indicate name/kcal Ensure Enlive daily /protein ) Provides kCal: 350 Provides Protein (gm) 20 Goal #1 Meet at least 80% of energy and protein needs Anticipated Discharge Needs: Cardiac with ONS Follow-Up By: 10/06/20 Additional Comments F/U for PO/ONS intakes
[2020-10-04] MEDS: hydrALAZINE 25 MG TAB PO SCH (21:29)
[2020-10-04] MEDS: ENOXAPARIN 40 MG/0.4 ML INJ SUB-Q SCH (21:29)
[2020-10-05 05:56] LABS: BUN/Creatinine Ratio 25; Blood Urea Nitrogen 20 mg/dL (9-20); Calcium 7.9 mg/dL (8.4-10.2); Hemolysis Index 5
[2020-10-05] MEDS ORDERED: ALENDRONATE SODIUM 70 MG TAB PO SCH (07:00)
[2020-10-05] MEDS ORDERED: POTASSIUM CHLORIDE ER 20 MEQ TAB PO SCH (09:00)
--- NOTE | 2020-10-05 09:54 | Progress Note ---
Assessment and Plan 1. Hyponatremia: Hyponatremia 2/2 SIADH. Sodium level is improving appropriately with Salt tablets. NaCl increased to 2 gm TID. Monitor Sodium level. 2. FEN: Monitor lytes and volume status. 3. Uncontrolled HTN: Adjust BP meds as needed. Monitor BP. 4. Headache: Likely secondary to high blood pressure. Monitor. Subjective: Patient was seen and examined at the bedside. Examination: General appearance: well-developed, appears stated age, appears emaciated, no di stress HEENT: ATNC, [place] Neck: trachea midline Respiratory: ctab Heart: regular, S1S2, no murmur Gastrointestinal: soft, normoactive bowel sounds, not tender Integumentary: no rash, warm and dry Neurologic: alert, moving extremities Ext: no edema Subjective Date of service: 10/05/20 Objective - Vital Signs Vital signs: Vital Signs - 12hr 10/04/20 10/05/20 10/05/20 23:11 01:00 03:06 Temperature 98.1 F 97.8 F Pulse Rate 79 70 66 Respiratory 16 16 Rate Blood Pressure 120/65 128/64 O2 Sat by Pulse 92 93 Oximetry - Lab 10/04/20 04:47 10/05/20 04:44 Most recent lab results Calcium 7.9 mg/dL (8.4-10.2) L 10/05/20 04:44 Phosphorus 2.80 mg/dL (2.5-4.5) 10/04/20 04:47 Magnesium 2.00 mg/dL (1.7-2.3) 10/04/20 04:47 Medications & Allergies - Medications Allergies/Adverse Reactions: Allergies No Known Allergies Allergy (Verified 12/29/19 21:28) Home Medications: Home Medications Medication Instructions Recorded Confirmed Last Taken Type Alendronate Sodium [Fosamax] 70 mg PO QWEEK 02/17/15 10/19/18 02/16/15 History Dutasteride [Avodart] 0.5 mg PO DAILY 02/17/15 10/19/18 02/16/15 History Tamsulosin [Flomax] 0.4 mg PO QDAY 02/17/15 10/19/18 02/16/15 History Telmisartan 80 mg PO DAILY 02/17/15 10/19/18 1 Day Ago History ~04/01/15 1 Sodium Chloride 1 gm PO TID #90 tablet 08/10/20 Unknown Rx Active Medications: Generic Name Dose Route Start Last Admin Trade Name Freq PRN Reason Stop Dose Admin Acetaminophen 650 mg 10/03/20 21:44 10/04/20 21:28 Tylenol PO 650 mg Q4H PRN Administration Pain MILD(1-3)/Fever >100.5/CHAVEZ Alendronate Sodium 70 mg 10/05/20 07:00 10/05/20 06:09 Fosamax PO 70 mg We ZAKIA Administration Enoxaparin Sodium 40 mg 10/04/20 22:00 10/04/20 21:29 Enoxaparin SUB-Q 40 mg QDAY@2200 ZAKIA Administration Protocol Hydralazine HCl 50 mg 10/04/20 20:00 10/04/20 21:29 Apresoline PO Not Given TID [facility] Losartan Potassium 50 mg 10/04/20 10:00 10/04/20 10:11 Cozaar PO 50 mg QDAY ZAKIA Administration Magnesium Hydroxide 30 ml 10/03/20 21:44 Milk Of Magnesia PO Q4H PRN Constipation Miscellaneous Medication 0.5 mg 10/04/20 10:00 Dutasteride [Avodart] PO DAILY [facility] Morphine Sulfate 2 mg 10/03/20 21:44 10/04/20 16:32 Morphine IV 2 mg Q4H PRN Administration Pain, Moderate (4-6) Ondansetron HCl 4 mg 10/03/20 21:44 Zofran IV Q8H PRN Nausea And Vomiting Potassium Chloride 40 meq 10/05/20 09:00 K-Dur PO 10/05/20 12:00 ONCE ZAKIA Sodium Chloride 10 ml 10/03/20 22:00 10/04/20 21:29 Sodium Chloride Flush Syringe 10 Ml IV 10 ml BID ZAKIA Administration Sodium Chloride 10 ml 10/03/20 21:44 Sodium Chloride Flush Syringe 10 Ml IV PRN PRN LINE FLUSH Sodium Chloride 2 gm 10/05/20 10:00 Sodium Chloride PO TID ZAKIA Tamsulosin HCl 0.4 mg 10/04/20 10:00 10/04/20 10:11 Flomax PO 0.4 mg QDAY ZAKIA Administration
[2020-10-05] MEDS: hydrALAZINE 25 MG TAB PO SCH ×3 (10:09→22:24)
[2020-10-05] MEDS: LOSARTAN 50 MG TAB PO SCH (10:09)
[2020-10-05] MEDS: TAMSULOSIN 0.4 MG CAP PO SCH (10:09)
[2020-10-05] MEDS: SODIUM CHLORIDE 1 GM TAB PO SCH ×3 (10:19→22:00)
--- NOTE | 2020-10-05 19:42 | Progress Note ---
Assessment and Plan Assessment and plan: --Severe hyponatremia; Sodium levels [phone] Gentle hydration with normal saline, Started on sodium chloride tablets, Nephrology following --Acute metabolic encephalopathy; present on admission Multifactorial, advanced age, electrolyte abnormalities Hypertensive urgency, mild improvement Treat the underlying cause --Hypertensive urgency; present on admission Blood pressures well controlled Continue current antihypertensives and as needed medications --Headache; present on admission/resolved CT head without contrast, no acute abnormality Only age-related changes --Severe malnutrition; nutrition supplements Supportive care, nutrition consult --DVT prophylaxis; heparin --Full CODE STATUS; We will closely monitor the patient and adjust management as needed Plan of care reviewed with the patient's nurse We will try to reach the family to get more medical history And also to update patient's condition and treatment plan 10/05/20; closely monitor electrolytes, adjust as needed PT OT, discharge planning Possible discharge in 1 to 2 days if stable History Interval history: I have seen and examined the patient this morning No new changes Patient has no complaints Sodium levels gradually and slowly improving Vital signs reviewed Hospitalist Physical - Constitutional Vitals: Temp Pulse Resp BP Pulse Ox 97.3 F L 97 H 18 120/60 94 10/05/20 19:13 10/05/20 19:13 10/05/20 19:13 10/05/20 19:13 10/05/20 19:13 General appearance: Present: no acute distress, well-nourished - EENT Eyes: Present: PERRL, EOM intact - Neck Neck: Present: supple, normal ROM - Respiratory Respiratory effort: normal Respiratory: bilateral: diminished, negative: rales, rhonchi, wheezing - Cardiovascular Rhythm: regular Heart Sounds: Present: S1 & S2 - Extremities Extremities: no ischemia, No edema - Abdominal General gastrointestinal: soft, non-tender, non-distended, normal bowel sounds - Integumentary Integumentary: Present: clear, warm - Psychiatric Psychiatric: appropriate mood/affect, cooperative - Neurologic Neurologic: moves all extremities Results - Labs CBC & Chem 7: 10/04/20 04:47 10/06/20 05:23 Labs: Laboratory Last Values WBC 8.1 K/mm3 (4.5-11.0) 10/04/20 04:47 RBC 4.51 M/mm3 (3.65-5.03) 10/04/20 04:47 Hgb 13.9 gm/dl (11.8-15.2) 10/04/20 04:47 Hct 41.3 % (35.5-45.6) 10/04/20 04:47 MCV 92 fl (84-94) 10/04/20 04:47 MCH 31 pg (28-32) 10/04/20 04:47 MCHC 34 % (32-34) 10/04/20 04:47 RDW 13.9 % (13.2-15.2) 10/04/20 04:47 Plt Count 314 K/mm3 (140-440) 10/04/20 04:47 Lymph % (Auto) 11.8 % (13.4-35.0) L 10/04/20 04:47 Braxton % (Auto) 11.0 % (0.0-7.3) H 10/04/20 04:47 Eos % (Auto) 0.4 % (0.0-4.3) 10/04/20 04:47 Baso % (Auto) 0.4 % (0.0-1.8) 10/04/20 04:47 Lymph # (Auto) 1.0 K/mm3 (1.2-5.4) L 10/04/20 04:47 Braxton # (Auto) 0.9 K/mm3 (0.0-0.8) H 10/04/20 04:47 Eos # (Auto) 0.0 K/mm3 (0.0-0.4) 10/04/20 04:47 Baso # (Auto) 0.0 K/mm3 (0.0-0.1) 10/04/20 04:47 Seg Neutrophils % 76.4 % (40.0-70.0) H 10/04/20 04:47 Seg Neutrophils # 6.2 K/mm3 (1.8-7.7) 10/04/20 04:47 PT 12.5 Sec. (12.2-14.9) 10/04/20 04:47 INR 0.92 (0.87-1.13) 10/04/20 04:47 Sodium 129 mmol/L (137-145) L 10/05/20 04:44 Potassium 3.5 mmol/L (3.6-5.0) L 10/05/20 04:44 Chloride 95.4 mmol/L (98-107) L 10/05/20 04:44 Carbon Dioxide 26 mmol/L (22-30) 10/05/20 04:44 Anion Gap 11 mmol/L 10/05/20 04:44 BUN 20 mg/dL (9-20) 10/05/20 04:44 Creatinine 0.8 mg/dL (0.8-1.3) 10/05/20 04:44 Estimated GFR > 60 ml/min 10/05/20 04:44 BUN/Creatinine Ratio 25 % 10/05/20 04:44 Glucose 95 mg/dL (75-100) 10/05/20 04:44 Calcium 7.9 mg/dL (8.4-10.2) L 10/05/20 04:44 Phosphorus 2.80 mg/dL (2.5-4.5) 10/04/20 04:47 Magnesium 2.00 mg/dL (1.7-2.3) 10/04/20 04:47 Mahan/IV: Voiding Method Urinal IV Catheter Type [Left INT / Saline Lock Antecubital] Active Medications - Current Medications Current Medications: Generic Name Dose Route Start Last Admin Trade Name Freq PRN Reason Stop Dose Admin Acetaminophen 650 mg 10/03/20 21:44 10/04/20 21:28 Tylenol PO 650 mg Q4H PRN Administration Pain MILD(1-3)/Fever >100.5/CHAVEZ Alendronate Sodium 70 mg 10/05/20 07:00 10/05/20 06:09 Fosamax PO 70 mg We ZAKIA Administration Enoxaparin Sodium 40 mg 10/04/20 22:00 10/04/20 21:29 Enoxaparin SUB-Q 40 mg QDAY@2200 ZAKIA Administration Protocol Hydralazine HCl 50 mg 10/04/20 20:00 10/05/20 16:56 Apresoline PO 50 mg TID ZAKIA Administration Losartan Potassium 50 mg 10/04/20 10:00 10/05/20 10:09 Cozaar PO 50 mg QDAY ZAKIA Administration Magnesium Hydroxide 30 ml 10/03/20 21:44 Milk Of Magnesia PO Q4H PRN Constipation Miscellaneous Medication 0.5 mg 10/04/20 10:00 Dutasteride [Avodart] PO DAILY [facility] Morphine Sulfate 2 mg 10/03/20 21:44 10/04/20 16:32 Morphine IV 2 mg Q4H PRN Administration Pain, Moderate (4-6) Ondansetron HCl 4 mg 10/03/20 21:44 Zofran IV Q8H PRN Nausea And Vomiting Sodium Chloride 10 ml 10/03/20 22:00 10/05/20 10:21 Sodium Chloride Flush Syringe 10 Ml IV 10 ml BID ZAKIA Administration Sodium Chloride 10 ml 10/03/20 21:44 Sodium Chloride Flush Syringe 10 Ml IV PRN PRN LINE FLUSH Sodium Chloride 2 gm 10/05/20 10:00 10/05/20 13:17 Sodium Chloride PO 2 gm TID ZAKIA Administration Tamsulosin HCl 0.4 mg 10/04/20 10:00 10/05/20 10:09 Flomax PO 0.4 mg QDAY ZAKIA Administration Nutrition/Malnutrition Assess - Dietary Evaluation Nutrition/Malnutrition Findings: Nutrition Notes Start: 10/04/20 12:10 Freq: Status: Active Protocol: Document 10/04/20 12:10 LM (Rec: 10/04/20 12:39 LM [id number]) Nutrition Notes Need for Assessment generated from: Low BMI Initial or Follow up Assessment Current Diagnosis Hypertension,Hyperlipidemia Other Pertinent Diagnosis hx prostate cancer Current Diet cardiac Labs/Tests Na 126 Pertinent Medications Reviewed Height 5 ft 5 in Weight 48 kg [place] Body Weight (kg) 61.81 BMI 17.6 Weight Status Underweight Subjective/Other Information Screen for low BMI. Pt speaks [place]ames[place]. Unable to use [facility]n coronary care unit phone but [facility] to get information. Granddaugter stated that pt had a poor appetite for one day when his BP increased and had no wt loss. Burn Absent Trauma Absent Minimum of two criteria No physical signs of malnutrition #1 Nutrition Diagnosis Inadequate oral intake Etiology poor appetite secondary to elevated BP As Evidenced by Signs and Symptoms pt with decreased intakes Is patient on ventilator? No Is Patient Ambulatory and/or Out of Bed Yes [facility] [ 5951.944 NUTR.[id number]] Kcal/Kg value to use for calculation 38 Approximate Energy Requirements Using 1824 kcal/Kg Calculation Used for Recommendations Kcal/kg Additional Notes Protein: 48-58g (1-1.2g/kg) Fluid: 1ml/kcal Nutrition Intervention Change Diet Order: Continue Add Supplement/Snack (indicate name/kcal Ensure Enlive daily /protein ) Provides kCal: 350 Provides Protein (gm) 20 Goal #1 Meet at least 80% of energy and protein needs Anticipated Discharge Needs: Cardiac with ONS Follow-Up By: 10/06/20 Additional Comments F/U for PO/ONS intakes
[2020-10-05] MEDS: ACETAMINOPHEN 325 MG TAB PO PRN (22:24)
[2020-10-05] MEDS: ENOXAPARIN 40 MG/0.4 ML INJ SUB-Q SCH (22:25)
[2020-10-06 06:42] LABS: BUN/Creatinine Ratio 28; Blood Urea Nitrogen 22 mg/dL (9-20); Calcium 8.5 mg/dL (8.4-10.2); Hemolysis Index 5
--- NOTE | 2020-10-06 08:42 | Progress Note ---
Assessment and Plan 1. Hyponatremia: Hyponatremia 2/2 SIADH. Sodium level is improving appropriately with Salt tablets. Continue Salt tablets 2 gm BID. Monitor Sodium level. 2. FEN: Monitor lytes and volume status. 3. Uncontrolled HTN: Adjust BP meds as needed. Monitor BP. 4. Headache: Likely secondary to high blood pressure. Monitor. F/u in 1-2 weeks. Subjective: Patient was seen and examined at the bedside. Examination: General appearance: well-developed, appears stated age, appears emaciated, no distress HEENT: [place], [place] Neck: trachea midline Respiratory: ctab Heart: regular, S1S2, no murmur Gastrointestinal: soft, normoactive bowel sounds, not tender Integumentary: no rash, warm and dry Neurologic: alert, moving extremities Ext: no edema Subjective Date of service: 10/06/20 Objective - Vital Signs Vital signs: Vital Signs - 12hr 10/05/20 10/05/20 10/05/20 22:00 22:24 22:52 Temperature 98.3 F Pulse Rate 84 97 H 88 Pulse Rate [ 80 Apical] Respiratory 18 16 Rate Blood Pressure 120/60 129/68 O2 Sat by Pulse 94 93 Oximetry 10/06/20 03:46 Temperature 98.1 F Pulse Rate 84 Pulse Rate [ Apical] Respiratory 16 Rate Blood Pressure 128/69 O2 Sat by Pulse 92 Oximetry - Lab 10/04/20 04:47 10/06/20 05:23 Most recent lab results Calcium 8.5 mg/dL (8.4-10.2) 10/06/20 05:23 Phosphorus 2.80 mg/dL (2.5-4.5) 10/04/20 04:47 Magnesium 2.00 mg/dL (1.7-2.3) 10/04/20 04:47 Medications & Allergies - Medications Allergies/Adverse Reactions: Allergies No Known Allergies Allergy (Verified 12/29/19 21:28) Home Medications: Home Medications Medication Instructions Recorded Confirmed Last Taken Type Alendronate Sodium [Fosamax] 70 mg PO QWEEK 02/17/15 10/19/18 02/16/15 History Dutasteride [Avodart] 0.5 mg PO DAILY 02/17/15 10/19/18 02/16/15 History Tamsulosin [Flomax] 0.4 mg PO QDAY 02/17/15 10/19/18 02/16/15 History Telmisartan 80 mg PO DAILY 02/17/15 10/19/18 1 Day Ago History ~02/16/15 1 Hydralazine HCl 50 mg PO TID #90 tablet 10/06/20 Unknown Rx Sodium Chloride 2 tab PO BID #120 tablet 10/06/20 Unknown Rx Active Medications: Generic Name Dose Route Start Last Admin Trade Name Freq PRN Reason Stop Dose Admin Acetaminophen 650 mg 10/03/20 21:44 10/05/20 22:24 Tylenol PO 650 mg Q4H PRN Administration Pain MILD(1-3)/Fever >100.5/CHAVEZ Alendronate Sodium 70 mg 10/05/20 07:00 10/05/20 06:09 Fosamax PO 70 mg We ZAKIA Administration Enoxaparin Sodium 40 mg 10/04/20 22:00 10/05/20 22:25 Enoxaparin SUB-Q 40 mg QDAY@2200 ZAKIA Administration Protocol Hydralazine HCl 50 mg 10/04/20 20:00 10/05/20 22:24 Apresoline PO 50 mg TID ZAKIA Administration Losartan Potassium 50 mg 10/04/20 10:00 10/05/20 10:09 Cozaar PO 50 mg QDAY ZAKIA Administration Magnesium Hydroxide 30 ml 10/03/20 21:44 Milk Of Magnesia PO Q4H PRN Constipation Miscellaneous Medication 0.5 mg 10/04/20 10:00 Dutasteride [Avodart] PO DAILY ZAKIA Morphine Sulfate 2 mg 10/03/20 21:44 10/04/20 16:32 Morphine IV 2 mg Q4H PRN Administration Pain, Moderate (4-6) Ondansetron HCl 4 mg 10/03/20 21:44 Zofran IV Q8H PRN Nausea And Vomiting Sodium Chloride 10 ml 10/03/20 22:00 10/05/20 22:26 Sodium Chloride Flush Syringe 10 Ml IV 10 ml BID ZAKIA Administration Sodium Chloride 10 ml 10/03/20 21:44 Sodium Chloride Flush Syringe 10 Ml IV PRN PRN LINE FLUSH Sodium Chloride 2 gm 10/05/20 10:00 10/05/20 22:00 Sodium Chloride PO 2 gm TID ZAKIA Administration Tamsulosin HCl 0.4 mg 10/04/20 10:00 10/05/20 10:09 Flomax PO 0.4 mg QDAY ZAKIA Administration
[2020-10-06] MEDS: TAMSULOSIN 0.4 MG CAP PO SCH (09:59)
[2020-10-06] MEDS: hydrALAZINE 25 MG TAB PO SCH ×2 (09:59→13:43)
[2020-10-06] MEDS: LOSARTAN 50 MG TAB PO SCH (09:59)
[2020-10-06] MEDS ORDERED: SODIUM CHLORIDE 1 GM TAB PO SCH (10:00)
[2020-10-06] MEDS: POTASSIUM CHLORIDE ER 20 MEQ TAB PO SCH ×2 (10:05→13:43)
[2020-10-06] MEDS: SODIUM CHLORIDE 1 GM TAB PO SCH (12:04)
[2020-10-06 12:50] VITALS: BP 150/77
--- NOTE | 2020-10-06 14:11 | Discharge Summary ---
Providers - Providers Date of Admission: 10/05/20 09:20 Date of discharge: 10/06/20 Attending physician: MATIAS MCKINNON 10/03/20 21:44 Consult to Physician [CONS] Routine Comment: Consulting Provider: INA THORNE Physician Instructions: Reason For Exam: HYPONATREMIA H/O SIADH Hospitalization Reason for admission: Headache and hypertensive emergency Condition: Fair Pertinent studies: CT head without contrast; no acute abnormality noted Hospital course: 84-year-old [place] male patient with known history of hypertension, hyperlipidemia, history of prostate cancer and remote history of SIADH diagnosed few days ago was admitted through emergency room with headache and hypertensive emergency. CT head without contrast no acute abnormality no acute found to have hyponatremia. Patient was managed with multiple antihypertensives, normal saline and sodium chloride for severe hyponatremia. Patient symptoms slowly but gradually improved, patient was also seen and managed by finishing room supervisor in consultation patient symptoms slowly but gradually improved. Today patient is comfortable no new complaints vital signs stable physical examination unremarkable. Hemodynamically and clinically stable for discharge Patient strongly advised to comply with medications and follow-up with primary care physician finishing room supervisor per schedule Discharge diagnosis: --Severe hyponatremia; Sodium levels [phone] Mild improvement, patient advised to follow-up with nephrology Advised sodium chloride --Acute metabolic encephalopathy; present on admission Multifactorial, significantly improved, back to baseline --Hypertensive urgency; present on admission Blood pressures well controlled, continue current antihypertensives --Headache; present on admission/resolved CT head without contrast, no acute abnormality --Severe malnutrition; nutrition supplements Supportive care, nutrition consult --DVT prophylaxis; received heparin during hospital stay --Full CODE STATUS; Stable at discharge Advised to follow primary care physician and finishing room supervisor per schedule Disposition: DC-01 TO HOME OR SELFCARE Time spent for discharge: 32 min Core Measure Documentation - Palliative Care Palliative Care/ Comfort Measures: Not Applicable - Core Measures Any of the following diagnoses?: none Exam - Constitutional Vitals: Temp Pulse Resp BP Pulse Ox 97.7 F 101 H 18 150/77 92 10/06/20 12:47 10/06/20 12:47 10/06/20 12:47 10/06/20 13:43 10/06/20 12:47 General appearance: Present: no acute distress, cachectic - EENT Eyes: Present: PERRL, EOM intact - Neck Neck: Present: supple, normal ROM - Respiratory Respiratory effort: normal Respiratory: bilateral: diminished, negative: rales, rhonchi, wheezing - Cardiovascular Rhythm: regular Heart Sounds: Present: S1 & S2 - Extremities Extremities: no ischemia, No edema - Abdominal General gastrointestinal: Present: soft, non-tender, non-distended, normal bowel sounds - Integumentary Integumentary: Present: clear, warm - Musculoskeletal Musculoskeletal: strength equal bilaterally - Psychiatric Psychiatric: appropriate mood/affect, cooperative Plan Activity: advance as tolerated, fall precautions Diet: other (Cardiac diet) Additional Instructions: Fall precautions. If you have worsening symptoms contact MD or go to emergency room. Advised to check BMP at PMDs office in 3-5 days Follow up with: SUZAN BERG [Other] - 3-5 Days INA THORNE MD [Staff Physician] - 7 Days Prescriptions: Sodium Chloride 2 tab PO BID #120 tablet
== END 2020-10-06 18:02 | disposition home or self-care (01) | DRG 70 ==
LOC: ED 17:12 → 4A 21:21 → OBSVTOIN 10-05 09:20
PROVIDERS: ADMIT Internal Medicine Geriatric Medicine; ATTEND Internal Medicine
DX: G93.41 Metabolic encephalopathy (principal); E43 Unspecified severe protein-calorie malnutrition; Z68.1 Body mass index [BMI] 19.9 or less, adult; E22.2 Syndrome of inappropriate secretion of antidiuretic hormone; I16.0 Hypertensive urgency; I10 Essential (primary) hypertension; E78.5 Hyperlipidemia, unspecified; Z85.46 Personal history of malignant neoplasm of prostate
CPT/HCPCS: 36415; 70450; 80048; 83735; 84100; 84295; 85025; 85610; G0378; J0360; J1650; J2270; J2405; J7050